=== PATIENT | male | born 1990 | race Two or more races ===

== ENCOUNTER 2024-08-23 08:20 | Outpatient (CLI) | payer OTHER, SELFPAY | END 2024-08-23 08:21 | disposition home or self-care (01) | LOC: NFLDREF 08-25 01:30 | PROVIDERS: PCP Family Medicine; Referring Provider Family Medicine; Visit Provider Family Medicine | DX: Z13.220 Encounter for screening for lipoid disorders (principal); Z13.1 Encounter for screening for diabetes mellitus | CPT/HCPCS: 80061; 82947 ==